=== PATIENT | male | born 1980 | race African-American/Black ===

== ENCOUNTER 2016-11-10 23:57 | Emergency (ER) | payer BC, OTHER ==
[2016-11-11 00:09] VITALS: TEMP 98.3; O2SAT 98
[2016-11-11] MEDS ORDERED: Naproxen 550 mg Tab PO STA (00:18)
[2016-11-11] MEDS ORDERED: Naproxen 550 mg Tab PO ONE ×2 (00:20→01:26)
--- NOTE | 2016-11-11 00:26 | C.PDOC ---
History Of Present Illness A 35 y/o male presents to the ER c/o pain to the mid back that radiated to the bilateral rib cage since last night. Pt reports that the pain began after using a sledge hammer for a few hours at work. Pt notes the pain is worse with movement and laying down. Pt denies SOB, dizziness, nausea, vomiting, diaphoresis, lightheadedness, weakness or numbness, or any other complaints. Pt took over the counter Advil with no relief of pain. Time Seen by Provider: 11/11/16 00:12 Chief Complaint (Nursing): Back Pain History Per: Patient History/Exam Limitations: no limitations Onset/Duration Of Symptoms: Days Current Symptoms Are (Timing): Still Present Quality Of Discomfort: "Pain" Severity: Moderate Associated Symptoms: denies: New Weakness, New Numbness Exacerbating Factor(s): Movement, Other (Laying down) Recent travel outside of the [place]: No Additional History Per: Patient Past Medical History Reviewed: Historical Data, Nursing Documentation, Vital Signs Vital Signs: Last Vital Signs Temp 98.3 F 11/11/16 00:06 Pulse 70 11/11/16 02:09 Resp 18 11/11/16 02:09 BP 138/93 H 11/11/16 02:09 Pulse Ox 98 11/11/16 02:14 - Medical History PMH: No Chronic Diseases Family History: States: Unknown Family Hx - Social History Hx Alcohol Use: No Hx Substance Use: No Review Of Systems Constitutional: Negative for: Sweats Cardiovascular: Positive for: Chest Pain (Bilateral rib cage, radiation). Negative for: Light Headedness Respiratory: Negative for: Shortness of Breath Gastrointestinal: Negative for: Nausea, Vomiting Musculoskeletal: Positive for: Back Pain Neurological: Negative for: Weakness, Numbness, Dizziness Physical Exam - Physical Exam Appears: Non-toxic, No Acute Distress Skin: Warm, Dry Head: Atraumatic, Normacephalic Eye(s): bilateral: Normal Inspection Neck: Normal, Supple Chest: Tenderness (Tenderness to the bilateral intercostal ) Cardiovascular: Rhythm Regular Respiratory: Normal Breath Sounds, No Wheezing, Other Gastrointestinal/Abdominal: Normal Exam, Soft, No Tenderness Back: No Vertebral Tenderness, Paraspinal Tenderness (Bilateral parathoracic), No Straight Leg Raising Extremity: Normal ROM (all extr) Neurological/Psych: Oriented x3 (Awake and alert), Normal Speech, Normal Motor, Normal Sensation Gait: Steady ED Course And Treatment O2 Sat by Pulse Oximetry: 98 (RA) Pulse Ox Interpretation: Normal Progress Note: Impression: 35 y/o male c/o pain to the mid back that radiates to the bilateral rib cages since last night. Plans: CXR, valium, Anaprox, reassess. Pt is resting comfortable with improvements of the back pain and rib cage pain. Pt is in no acute distress and was advised to follow up with PMD within 1-2 days if problems persist. Disposition Counseled Patient/Family Regarding: Diagnosis, Need For Followup, Rx Given - Disposition Referrals: Jorge L Black MD [Staff Provider] - Disposition: HOME/ ROUTINE Disposition Time: 02:10 Condition: STABLE Additional Instructions: Please take meds as prescribed Follow up with PMD Return to ER if worse Prescriptions: Cyclobenzaprine [Cyclobenzaprine HCl] 10 mg PO BID #10 tab Ibuprofen [Motrin] 600 mg PO Q6H #30 tab Instructions: Muscle Strain (ED) Forms: Work Excuse - Clinical Impression Clinical Impression: Muscle strain - Scribe Statement The provider has reviewed the documentation as recorded by the Scribe Carlo marquez All medical record entries made by the Scribe were at my direction and personally dictated by me. I have reviewed the chart and agree that the record accurately reflects my personal performance of the history, physical exam, medical decision making, and the department course for this patient. I have also personally directed, reviewed, and agree with the discharge instructions and disposition.
[2016-11-11 02:13] VITALS: BP 138/93; PULSE 70; RESP 18
--- NOTE | 2016-11-11 10:38 | RAD ---
HISTORY: chest pain COMPARISON: No prior. TECHNIQUE: Chest PA and lateral FINDINGS: LUNGS: No active pulmonary disease. PLEURA: No significant pleural effusion identified. No pneumothorax apparent. CARDIOVASCULAR: Normal. OSSEOUS STRUCTURES: No significant abnormalities. VISUALIZED UPPER ABDOMEN: Normal. OTHER FINDINGS: None. IMPRESSION: No active disease.
== END 2016-11-11 02:29 | disposition home or self-care (01) ==
LOC: C.ER 23:57
DX: S29.012A Strain of muscle and tendon of back wall of thorax, initial encounter (principal); X50.3XXA Overexertion from repetitive movements, initial encounter; Y93.89 Activity, other specified; Y92.89 Other specified places as the place of occurrence of the external cause